=== PATIENT | male | born 1930 | race Caucasian/White ===

== ENCOUNTER 2018-10-17 08:42 | Emergency (ER) | payer MEDICARE, OTHER ==
[~2018-10-17] VITALS: Ht 167.6 cm; Wt 63.5 kg
[2018-10-17] MEDS ORDERED: AMLO5TAB9 PO (09:15)
[2018-10-17] MEDS ORDERED: LOSA100T31 PO (09:15)
[2018-10-17] MEDS ORDERED: ASPI81TA31 PO (09:15)
[2018-10-17] MEDS ORDERED: FISH1CAP16 PO (09:15)
[2018-10-17] MEDS ORDERED: ATOR40TA PO (09:15)
[2018-10-17] MEDS ORDERED: VIT1CAPS27 PO (09:15)
[2018-10-17] MEDS ORDERED: GLUC-195 PO (09:15)
[2018-10-17] MEDS ORDERED: HYDR25TA4 PO (09:15)
[2018-10-17] MEDS ORDERED: CLINDAMYCIN HCL 150 MG CAPSULE PO ONE (09:30)
[2018-10-17] MEDS ORDERED: CLINDAMYCIN HCL 300 MG CAPSULE ONE (09:32)
--- NOTE | 2018-10-17 09:33 | NUR ---
PATIENT WAS SEEN BY DR LAZO. MEDICATION GIVEN ORDERED. DC, RX AND FOLLOW UP INSTRUCTIONS GIVEN AND EXPAINED TO PATIENT WHO STATES HE UNDERSTANDS ALL INSTRUCTIONS.
== END 2018-10-17 09:36 | disposition home or self-care (01) ==
LOC: ER 08:42
DX: L03.011 Cellulitis of right finger (principal); E78.5 Hyperlipidemia, unspecified; Z79.82 Long term (current) use of aspirin; Z79.899 Other long term (current) drug therapy
CPT/HCPCS: A4663

== ENCOUNTER 2020-01-16 15:31 | Emergency (ER) | payer MEDICARE, OTHER ==
[~2020-01-16] VITALS: Ht 167.6 cm; Wt 72.6 kg
[~2020-01-16 15:31] MED LIST: AMLO-212 PO; ASPI81TA31 PO; ATOR40TA PO; FISH1CAP16 PO; GLUC-195 PO; HYDR25TA4 PO; LOSA100T31 PO; VIT1CAPS27 PO
--- NOTE | 2020-01-16 15:52 | NUR ---
PT IS IN ROOM #2A. DR DAMON EVALUATED THE PT.
--- NOTE | 2020-01-16 15:57 | NUR ---
Spoke with pt's son Jacquie via telephone ([phone]) who stated he suspects his father may have taken too much of his Losartan. notified.
[2020-01-16 15:59] LABS: BASOPHILS # (AUTO) 0.1 K/uL (0.0-8.0); EOSINOPHILS # (AUTO) 0.3 K/uL (0.0-0.7); EOSINOPHILS % (AUTO) 4.3 % (0.0-7.0); HEMATOCRIT 35.9 % (36.7-47.1); HEMOGLOBIN 12.1 g/dL (12.5-16.3); LYMPHOCYTES # (AUTO) 1.7 K/uL (20.0-40.0); LYMPHOCYTES % (AUTO) 28.6 % (20.5-51.5); MEAN CORPUSCULAR HEMOGLOBIN 32.6 uug (23.8-33.4); MEAN CORPUSCULAR HGB CONC 34 g/dL (32.5-36.3); MEAN CORPUSCULAR VOLUME 96.7 fL (73.0-96.2); MONOCYTES # (AUTO) 0.5 K/uL (2.0-10.0); MONOCYTES % (AUTO) 8.5 % (0.0-11.0); NEUTROPHILS # (AUTO) 3.5 K/uL (1.8-8.9); NEUTROPHILS % (AUTO) 57.6 % (38.5-71.5); PLATELET COUNT (AUTO) 158 K/uL (152-348); RED BLOOD CELL COUNT(AUTO) 3.71 MIL/uL (4.06-5.63)
[2020-01-16 16:02] LABS: CARBON DIOXIDE 26 mmol/L (21-32); CHLORIDE 105 mmol/L (98-107); CREATININE 1.6 mg/dL (0.6-1.3); GLUCOSE 95 mg/dL (74-106); POTASSIUM 4.1 mmol/L (3.5-5.1); UREA NITROGEN, BLOOD 32 mg/dL (7-18)
[2020-01-16 16:14] LABS: ALANINE AMINOTRANSFERASE 24 U/L (16-63); ALKALINE PHOSPHATASE 92 U/L (50-136); ASPARTATE AMINOTRANSFERASE 18 U/L (15-37); BILIRUBIN,DIRECT 0.1 mg/dL (0.0-0.2); BILIRUBIN,TOTAL 0.4 mg/dL (0.2-1.0); TOTAL PROTEIN, SERUM 5.8 g/dL (6.4-8.2)
[2020-01-16 17:20] LABS: *BILIRUBIN,URIN NEGATIVE (NEGATIVE); *BLOOD, URINE NEGATIVE (NEGATIVE); *CLARITY,URINE CLEAR (CLEAR); *COLOR,URINE YELLOW (YELLOW); *KETONES,URINE NEGATIVE (NEGATIVE); LEUKOCYTE ESTERASE ,URINE NEGATIVE (NEGATIVE); NITRITE, URINE NEGATIVE (NEGATIVE); UGLUCOSE NEGATIVE (NEGATIVE)
--- NOTE | 2020-01-16 18:59 | NUR ---
REPORT GIVEN TO [facility] DIRECTOR RN.
--- NOTE | 2020-01-16 20:07 | NUR ---
MD cleared the patient for discharge. All troponin negative. Son Jacquie made aware of DC. IV removed. Catheter intact and site benign. Pressure and 4x4 gauze applied to site. No bleeding noted. Written and verbal after care instructions given to patient and son. Both verbalized understanding of instructions. Stressed follow up or return to ER for worsening s/s. Pt in room waiting for ride to home.
--- NOTE | 2020-01-16 20:13 | NUR ---
Pt ambulated with steady gait, standby assist out of ED to family's car. Left ED in stable condition.
[2020-01-16 20:14] VITALS: BP 140/65
== END 2020-01-16 20:14 | disposition home or self-care (01) ==
LOC: ER 15:34
DX: T46.5X1A Poisoning by other antihypertensive drugs, accidental (unintentional), initial encounter (principal); I95.2 Hypotension due to drugs; R42 Dizziness and giddiness; Y92.019 Unspecified place in single-family (private) house as the place of occurrence of the external cause; F03.90 Unspecified dementia, unspecified severity, without behavioral disturbance, psychotic disturbance, mood disturbance, and anxiety; I25.10 Atherosclerotic heart disease of native coronary artery without angina pectoris; Z95.5 Presence of coronary angioplasty implant and graft; I10 Essential (primary) hypertension; E78.5 Hyperlipidemia, unspecified; Z79.899 Other long term (current) drug therapy; Z79.82 Long term (current) use of aspirin
CPT/HCPCS: 36415; 70030-TC; 70450; 71045; 85025; 93005; A4663; J7030